=== PATIENT | male | born 1960 | race Two or more races ===

== ENCOUNTER 2020-07-15 14:30 | Inpatient (IN) | payer OTHER ==
[~2020-07-15] VITALS: Ht 160 cm; Wt 87.0 kg
[~2020-07-15 14:30] MED LIST: ATOR20TA50 PO; CARB-80 PO; CYCL-611 PO; FENO160T8 PO; FINA5TAB4 PO; FURO40TA4 PO; KEP500T PO; LISI2.5T47 PO; METO-159 PO; POTA10TA51 PO; PRAM0.252 PO; TAMS0.4C36 PO
[2020-07-15] MEDS ORDERED: NOREPINEPHRINE 8 MG/250ML KIT 250 ML IV ONE (15:12)
[2020-07-15 15:29] LABS: Basophils # (auto) 0 10 ^3/uL (0-0.2); Basophils % (auto) 0.3 % (0.0-2.0); Eosinophils # (auto) 0 10 ^3/uL (0-0.8); Eosinophils % (auto) 0.5 % (0.0-7.0); Hemoglobin 12.9 g/dL (13.5-17.5); Lymphocytes # (auto) 0.8 10 ^3/uL (0.4-5.4); Lymphocytes % (auto) 13.7 % (10.0-50.0); Mean Corpuscular Hemoglobin 29.5 pg (28.0-32.0); Mean Corpuscular Volume 89.4 fL (80.0-100.0); Monocytes # (auto) 0.3 10 ^3/uL (0-1.3); Monocytes % (auto) 5.5 % (0.0-12.0); Neutrophils # (auto) 4.9 10 ^3/uL (1.6-8.6); Nucleated Red Blood Cells % 0.1 %; Red Blood Cells 4.37 10^6/uL (4.5-5.90); Red Cell Distribution Width 14.5 % (11.8-14.3); White Blood Cell 6.1 10^3/uL (4.4-10.8)
[2020-07-15] MEDS ORDERED: NOREPINEPHRINE 8 MG/250ML KIT 250 ML IV SCH (15:30)
[2020-07-15] MEDS ORDERED: SODIUM CHLORIDE 0.9% 1,000 ML IV ONE (15:30)
[2020-07-15] MEDS ORDERED: AMIODARONE HCL (50 MG/ ML) 3 ML VIAL IV ONE (15:38)
[2020-07-15] MEDS ORDERED: AMIODARONE HCL 150 MG in D5W 5% 100 ML IV ONE (15:45)
[2020-07-15] MEDS ORDERED: SODIUM CHLORIDE 0.9% 500 ML IV ONE (15:45)
[2020-07-15 15:54] LABS: Calcium 8.1 mg/dL (8.5-10.1); Magnesium 2.2 mg/dL (1.6-2.6); Potassium 4.1 mmol/L (3.5-5.1)
[2020-07-15 15:58] LABS: Lactic Acid w/Reflex 2.4 mmol/L (0.4-2.0)
[2020-07-15 16:00] LABS: BUN/Creatinine Ratio 18.6; Bilirubin, Total 0.7 mg/dL (0.2-1.0); Total Protein 5.8 g/dL (6.4-8.2)
[2020-07-15] MEDS ORDERED: AMIODARONE 450mg/250ml AE 250 ML IV SCH (16:00)
[2020-07-15] MEDS: AMIODARONE 450mg/250ml AE 250 ML IV SCH (23:14)
[2020-07-16] MEDS ORDERED: CYCLOBENZAPRINE HCL 10 MG TAB PO PRN (02:30)
[2020-07-16] MEDS ORDERED: NITROGLYCERIN 0.4 MG SL TAB SL PRN (02:30)
[2020-07-16] MEDS ORDERED: MORPHINE SULFATE 4 MG/ML SYR/VIAL IV PRN (02:30)
[2020-07-16] MEDS ORDERED: SODIUM CHLORIDE 0.9% 1,000 ML IV SCH (02:30)
[2020-07-16] MEDS ORDERED: ACETAMINOPHEN 325 MG TAB PO PRN (02:30)
[2020-07-16] MEDS ORDERED: ONDANSETRON HCL 4 MG/2 ML VIAL IV PRN (02:30)
[2020-07-16] MEDS: ENOXAPARIN SOD 80 MG/0.8ML SYRINGE SC SCH ×3 (03:00→21:34)
[2020-07-16] MEDS ORDERED: PRAMIPEXOLE DIHYDROCHLORIDE MO 0.25 MG TAB PO SCH ×2 (06:00→18:00)
[2020-07-16] MEDS ORDERED: FUROSEMIDE 40 MG TAB PO SCH (06:00)
[2020-07-16] MEDS: CARBIDOPA W LEVODOPA 25/100mg TABLET PO SCH ×4 (06:03→21:34)
[2020-07-16 07:08] LABS: Calcium 7.9 mg/dL (8.5-10.1)
[2020-07-16 07:11] LABS: BUN/Creatinine Ratio 21.4
[2020-07-16 07:54] LABS: Basophils # (auto) 0 10 ^3/uL (0-0.2); Basophils % (auto) 0.4 % (0.0-2.0); Eosinophils # (auto) 0 10 ^3/uL (0-0.8); Eosinophils % (auto) 0.8 % (0.0-7.0); Hematocrit 37.2 % (41.0-53.0); Hemoglobin 12.6 g/dL (13.5-17.5); Lymphocytes # (auto) 0.9 10 ^3/uL (0.4-5.4); Lymphocytes % (auto) 17.7 % (10.0-50.0); Mean Corpuscular Hemoglobin 30.2 pg (28.0-32.0); Mean Corpuscular Volume 88.9 fL (80.0-100.0); Monocytes # (auto) 0.3 10 ^3/uL (0-1.3); Monocytes % (auto) 5.9 % (0.0-12.0); Neutrophils # (auto) 3.8 10 ^3/uL (1.6-8.6); Neutrophils % (auto) 75.2 % (37.0-80.0); Nucleated Red Blood Cells % 0.2 %; Red Blood Cells 4.18 10^6/uL (4.5-5.90); Red Cell Distribution Width 14.5 % (11.8-14.3); White Blood Cell 5.1 10^3/uL (4.4-10.8)
[2020-07-16] MEDS: METOPROLOL TARTRATE 50 MG TAB PO SCH ×2 (09:36→21:34)
[2020-07-16] MEDS: FINASTERIDE 5 MG TAB PO SCH (09:49)
[2020-07-16] MEDS: POTASSIUM CHL 10 Meq TABLET PO SCH (09:49)
[2020-07-16] MEDS: DOCUSATE SOD 100 MG CAP PO SCH (09:49)
[2020-07-16] MEDS: levETIRAcetam 500 MG TAB PO SCH ×2 (09:49→21:33)
[2020-07-16] MEDS: Fenofibrate 160MG TABLET PO SCH (09:49)
[2020-07-16] MEDS: ASPirin 81 mg TAB PO SCH (09:49)
[2020-07-16] MEDS: LISINOPRIL 5 MG TAB PO SCH (09:50)
[2020-07-16] MEDS ORDERED: ATORVASTATIN 20 MG TAB PO SCH ×2 (10:00→22:00)
[2020-07-16] MEDS ORDERED: CLOPIDOGREL BISULFATE 75 MG TAB PO SCH (10:00)
[2020-07-16 10:02] LABS: Urine Bacteria NONE SEEN /hpf (None Seen); Urine Blood 1+ /uL (Negative); Urine Hyaline Cast FEW /lpf (0 - 2); Urine Mucus FEW (None Seen); Urine Specific Gravity 1.012 (1.001-1.035); Urine WBC 1 /hpf (0 - 3)
[2020-07-16 12:20] VITALS: BP 160/86
[2020-07-16] MEDS: AMIODARONE 450mg/250ml AE 250 ML IV SCH (13:00)
[2020-07-16 16:00] VITALS: BP 147/88
[2020-07-16] MEDS ORDERED: TAMSULOSIN HYDROCHLORIDE 0.4 MG CAP PO SCH (18:00)
[2020-07-16 21:50] VITALS: BP 145/83
[2020-07-16 22:00] VITALS: BP 136/83
[2020-07-17] MEDS: CARBIDOPA W LEVODOPA 25/100mg TABLET PO SCH ×2 (05:05→12:21)
[2020-07-17 05:43] VITALS: BP 148/96
[2020-07-17 07:12] LABS: Calcium 7.8 mg/dL (8.5-10.1); Potassium 3.7 mmol/L (3.5-5.1)
[2020-07-17 07:20] LABS: BUN/Creatinine Ratio 23.5
[2020-07-17 09:33] VITALS: BP 131/77
[2020-07-17] MEDS: ASPirin 81 mg TAB PO SCH (09:49)
[2020-07-17] MEDS: levETIRAcetam 500 MG TAB PO SCH (09:49)
[2020-07-17] MEDS: DOCUSATE SOD 100 MG CAP PO SCH (09:49)
[2020-07-17] MEDS: Fenofibrate 160MG TABLET PO SCH (09:49)
[2020-07-17] MEDS: POTASSIUM CHL 10 Meq TABLET PO SCH (09:50)
[2020-07-17] MEDS: FINASTERIDE 5 MG TAB PO SCH (09:50)
[2020-07-17] MEDS: METOPROLOL TARTRATE 50 MG TAB PO SCH ×2 (09:53→12:22)
[2020-07-17] MEDS: LISINOPRIL 5 MG TAB PO SCH (09:55)
[2020-07-17] MEDS: ENOXAPARIN SOD 80 MG/0.8ML SYRINGE SC SCH (09:55)
== END 2020-07-17 14:32 | disposition home or self-care (01) | DRG 282 ==
LOC: ER 14:30 → EDBD 14:30 → TELE 14:31 → TELE-EAST 07-16 11:50
PROVIDERS: ADMIT Hospitalist; ATTEND Internal Medicine Geriatric Medicine
DX: I48.0 Paroxysmal atrial fibrillation (principal); I21.A1 Myocardial infarction type 2; I25.10 Atherosclerotic heart disease of native coronary artery without angina pectoris; G20 Parkinson's disease; Z20.822 Contact with and (suspected) exposure to COVID-19; E11.9 Type 2 diabetes mellitus without complications; E78.5 Hyperlipidemia, unspecified; I11.0 Hypertensive heart disease with heart failure; I50.9 Heart failure, unspecified; Z79.82 Long term (current) use of aspirin; Z99.3 Dependence on wheelchair
CPT/HCPCS: 36415; 71045; 80048; 80053; 80061; 81001; 83605; 83735; 84484; 85025; 87040; 87426; 93005; 93306; 96361; 96365; 96375; G0378; J7060

== ENCOUNTER 2021-06-09 09:46 | Inpatient (IN) | payer OTHER ==
[~2021-06-09] VITALS: Ht 170.2 cm; Wt 76.0 kg
[2021-06-09 12:38] LABS: Basophils # (auto) 0 10 ^3/uL (0-0.2); Basophils % (auto) 0.4 % (0.0-2.0); Eosinophils # (auto) 0 10 ^3/uL (0-0.8); Eosinophils % (auto) 0.5 % (0.0-7.0); Hematocrit 37.6 % (41.0-53.0); Hemoglobin 12.8 g/dL (13.5-17.5); Lymphocytes # (auto) 1.1 10 ^3/uL (0.4-5.4); Lymphocytes % (auto) 12.4 % (10.0-50.0); Mean Corpuscular Hemoglobin 29.3 pg (28.0-32.0); Mean Corpuscular Hgb Conc. 33.9 g/dL (32.0-36.0); Mean Corpuscular Volume 86.4 fL (80.0-100.0); Monocytes # (auto) 0.7 10 ^3/uL (0-1.3); Monocytes % (auto) 8.2 % (0.0-12.0); Neutrophils # (auto) 7.1 10 ^3/uL (1.6-8.6); Neutrophils % (auto) 78.5 % (37.0-80.0); Nucleated Red Blood Cells % 0.1 %; Red Blood Cells 4.35 10^6/uL (4.5-5.90); Red Cell Distribution Width 13.2 % (11.8-14.3); White Blood Cell 9.1 10^3/uL (4.4-10.8)
[2021-06-09 12:53] LABS: Calcium 8.1 mg/dL (8.5-10.1); Potassium 3.8 mmol/L (3.5-5.1); Uric Acid 5.7 mg/dL (3.5-7.2)
[2021-06-09] MEDS ORDERED: cefTRIAXone 1GM/50ML D5W 50 ML IV ONE (13:45)
[2021-06-09] MEDS ORDERED: CLINDAMYCIN 900MG IV 50 ML IV ONE (13:45)
[2021-06-09] MEDS ORDERED: NITROGLYCERIN 0.4 MG SL TAB SL PRN ×2 (17:30→18:30)
[2021-06-09] MEDS ORDERED: MORPHINE SULFATE INJECTION 2 MG/ML SYRG IV PRN ×2 (17:30→18:30)
[2021-06-09] MEDS ORDERED: VANCOMYCIN PER PHARMACY 0 MG IV SCH (18:15)
[2021-06-09] MEDS ORDERED: BUMETANIDE 2.5mg/10ml (0.25 mg/ml) INJ IV ONE (18:15)
[2021-06-09] MEDS ORDERED: LORazepam 0.5 MG TAB PO PRN (18:30)
[2021-06-09] MEDS ORDERED: ALUM & MAG HYDROX-SIMETH LIQ(MAALOX) 30 ML PO PRN (18:30)
[2021-06-09] MEDS ORDERED: HYDROcodone-ACET 5/325MG TAB PO PRN (18:30)
[2021-06-09] MEDS ORDERED: CALCIUM W/VIT D (600MG/400IU) TAB PO ONE (18:30)
[2021-06-09] MEDS ORDERED: ACETAMINOPHEN 325 MG TAB PO PRN (18:30)
[2021-06-09 19:54] LABS: Partial Thromboplastin Time 31.8 sec (23.6-33.0)
[2021-06-09 20:00] LABS: Uric Acid 6.1 mg/dL (3.5-7.2)
[2021-06-09 20:04] LABS: Cholesterol 99 mg/dL (< 200); Triglycerides 76 mg/dL (< 150)
[2021-06-09 20:06] LABS: HDL Cholesterol 49 mg/dL (40-59); LDL Cholesterol 35 mg/dL (< 100)
[2021-06-09] MEDS: levETIRAcetam 500 MG TAB PO SCH (20:32)
[2021-06-09] MEDS: CARBIDOPA W LEVODOPA 25/100mg TABLET PO SCH (20:32)
[2021-06-09] MEDS: PRAMIPEXOLE DIHYDROCHLORIDE MO 0.25 MG TAB PO SCH (20:32)
[2021-06-09] MEDS: VANCOMYCIN 1GM/250ML 250 ML IV SCH (20:33)
[2021-06-09] MEDS: SOTALOL HCL 80 MG TAB PO SCH (20:42)
[2021-06-09 21:20] LABS: Amphetamine Screen, Urine NEGATIVE (NEGATIVE); Barbiturate Scree,Urine NEGATIVE (NEGATIVE); Benzodiazephine Screen, Urine NEGATIVE (NEGATIVE); Cannabinoid Screen, Urine NEGATIVE (NEGATIVE); Opiate Scree,Urine NEGATIVE (NEGATIVE); Phencyclidine Screen, Urine NEGATIVE (NEGATIVE)
[2021-06-09] MEDS: NEOMYCIN-BACITRACIN-POLYM 15GM TOP OINT TOP SCH (21:32)
[2021-06-09 21:54] LABS: Urine Bacteria NONE SEEN /hpf (None Seen); Urine Blood TRACE /uL (Negative); Urine Hyaline Cast FEW /lpf (0 - 2); Urine Mucus FEW (None Seen); Urine Specific Gravity 1.014 (1.001-1.035); Urine WBC 1 /hpf (0 - 3)
[2021-06-09 22:19] LABS: Cocaine Screen, Urine NEGATIVE (NEGATIVE)
[2021-06-09 22:26] VITALS: BP 95/55
[2021-06-10] MEDS: BUMETANIDE 2.5mg/10ml (0.25 mg/ml) INJ IV SCH ×2 (05:27→18:00)
[2021-06-10 05:28] VITALS: BP 138/79
[2021-06-10] MEDS: CARBIDOPA W LEVODOPA 25/100mg TABLET PO SCH ×4 (05:28→21:08)
[2021-06-10] MEDS: PRAMIPEXOLE DIHYDROCHLORIDE MO 0.25 MG TAB PO SCH ×3 (05:28→21:08)
[2021-06-10] MEDS: NEOMYCIN-BACITRACIN-POLYM 15GM TOP OINT TOP SCH ×3 (05:28→21:09)
[2021-06-10 06:13] LABS: Basophils # (auto) 0 10 ^3/uL (0-0.2); Basophils % (auto) 0.2 % (0.0-2.0); Eosinophils # (auto) 0.1 10 ^3/uL (0-0.8); Eosinophils % (auto) 0.9 % (0.0-7.0); Hematocrit 34.5 % (41.0-53.0); Hemoglobin 11.7 g/dL (13.5-17.5); Lymphocytes # (auto) 0.7 10 ^3/uL (0.4-5.4); Lymphocytes % (auto) 12.7 % (10.0-50.0); Mean Corpuscular Hemoglobin 28.7 pg (28.0-32.0); Mean Corpuscular Hgb Conc. 33.9 g/dL (32.0-36.0); Mean Corpuscular Volume 84.8 fL (80.0-100.0); Monocytes # (auto) 0.4 10 ^3/uL (0-1.3); Monocytes % (auto) 7.1 % (0.0-12.0); Neutrophils # (auto) 4.5 10 ^3/uL (1.6-8.6); Neutrophils % (auto) 79.1 % (37.0-80.0); Nucleated Red Blood Cells % 0.1 %; Red Blood Cells 4.07 10^6/uL (4.5-5.90); Red Cell Distribution Width 13.3 % (11.8-14.3); White Blood Cell 5.7 10^3/uL (4.4-10.8)
[2021-06-10 06:31] LABS: INR 0.99 (0.9-1.15); Partial Thromboplastin Time 31.3 sec (23.6-33.0)
[2021-06-10 06:41] LABS: Albumin 2.7 g/dL (3.4-5.0); Bilirubin, Total 0.5 mg/dL (0.2-1.0); Calcium 8.3 mg/dL (8.5-10.1); Magnesium 2.3 mg/dL (1.6-2.6); Phosphorus 3.7 mg/dL (2.5-4.90); Total Protein 6.3 g/dL (6.4-8.2)
[2021-06-10] MEDS: CALCIUM W/VIT D (600MG/400IU) TAB PO SCH ×2 (08:17→17:59)
[2021-06-10] MEDS: VANCOMYCIN 1GM/250ML 250 ML IV SCH ×2 (08:18→19:58)
[2021-06-10 09:06] VITALS: BP 112/63
[2021-06-10] MEDS: cefTRIAXone 1GM/50ML D5W 50 ML IV SCH (10:03)
[2021-06-10] MEDS: ENOXAPARIN SOD 40 MG/0.4 ML SYRINGE SC SCH (10:03)
[2021-06-10] MEDS: ASPirin 81 mg TAB PO SCH (10:04)
[2021-06-10] MEDS: ATORVASTATIN 20 MG TAB PO SCH (10:04)
[2021-06-10] MEDS: BENAZEPRIL HCL 10 MG TAB PO SCH (10:04)
[2021-06-10] MEDS: SOTALOL HCL 80 MG TAB PO SCH ×2 (10:04→21:46)
[2021-06-10] MEDS: levETIRAcetam 500 MG TAB PO SCH ×2 (10:05→21:07)
[2021-06-10] MEDS: FINASTERIDE 5 MG TAB PO SCH (10:05)
[2021-06-10 12:15] VITALS: BP 131/75
[2021-06-10] MEDS: MORPHINE SULFATE INJECTION 2 MG/ML SYRG IV PRN ×2 (12:18→19:59)
[2021-06-10] MEDS ORDERED: COLCHICINE 0.6 MG CAP PO ONE (14:15)
[2021-06-10] MEDS ORDERED: POTASSIUM CHL 20 Meq TABLET PO ONE (14:30)
[2021-06-10 16:30] VITALS: BP 122/77
[2021-06-10] MEDS: TAMSULOSIN HYDROCHLORIDE 0.4 MG CAP PO SCH (17:59)
[2021-06-10 22:00] VITALS: BP 113/68
[2021-06-11 05:00] VITALS: BP 123/75
[2021-06-11] MEDS: CARBIDOPA W LEVODOPA 25/100mg TABLET PO SCH ×4 (05:30→21:59)
[2021-06-11] MEDS: PRAMIPEXOLE DIHYDROCHLORIDE MO 0.25 MG TAB PO SCH ×3 (05:30→21:58)
[2021-06-11] MEDS: BUMETANIDE 2.5mg/10ml (0.25 mg/ml) INJ IV SCH ×2 (05:30→18:15)
[2021-06-11] MEDS: NEOMYCIN-BACITRACIN-POLYM 15GM TOP OINT TOP SCH ×3 (05:31→21:59)
[2021-06-11] MEDS: CALCIUM W/VIT D (600MG/400IU) TAB PO SCH ×2 (08:15→18:15)
[2021-06-11] MEDS: VANCOMYCIN 1GM/250ML 250 ML IV SCH ×2 (08:15→20:19)
[2021-06-11 08:27] LABS: Basophils # (auto) 0 10 ^3/uL (0-0.2); Basophils % (auto) 0.2 % (0.0-2.0); Eosinophils # (auto) 0.1 10 ^3/uL (0-0.8); Eosinophils % (auto) 1.2 % (0.0-7.0); Hematocrit 36.7 % (41.0-53.0); Hemoglobin 12.3 g/dL (13.5-17.5); Lymphocytes # (auto) 0.8 10 ^3/uL (0.4-5.4); Lymphocytes % (auto) 15.8 % (10.0-50.0); Mean Corpuscular Hemoglobin 28.8 pg (28.0-32.0); Mean Corpuscular Hgb Conc. 33.5 g/dL (32.0-36.0); Mean Corpuscular Volume 85.8 fL (80.0-100.0); Monocytes # (auto) 0.4 10 ^3/uL (0-1.3); Monocytes % (auto) 7.5 % (0.0-12.0); Neutrophils % (auto) 75.3 % (37.0-80.0); Red Blood Cells 4.28 10^6/uL (4.5-5.90); Red Cell Distribution Width 13.3 % (11.8-14.3); White Blood Cell 5.3 10^3/uL (4.4-10.8)
[2021-06-11] MEDS: MORPHINE SULFATE INJECTION 2 MG/ML SYRG IV PRN ×2 (08:37→20:20)
[2021-06-11 09:00] VITALS: BP 109/48
[2021-06-11 09:07] LABS: BUN/Creatinine Ratio 21.8; Calcium 7.9 mg/dL (8.5-10.1); Potassium 3.4 mmol/L (3.5-5.1)
[2021-06-11] MEDS: cefTRIAXone 1GM/50ML D5W 50 ML IV SCH (09:39)
[2021-06-11] MEDS: levETIRAcetam 500 MG TAB PO SCH ×2 (09:40→21:58)
[2021-06-11] MEDS: ATORVASTATIN 20 MG TAB PO SCH (09:41)
[2021-06-11] MEDS: COLCHICINE 0.6 MG CAP PO SCH ×2 (09:41→21:58)
[2021-06-11] MEDS: FINASTERIDE 5 MG TAB PO SCH (09:41)
[2021-06-11] MEDS: BENAZEPRIL HCL 10 MG TAB PO SCH (09:41)
[2021-06-11] MEDS: ASPirin 81 mg TAB PO SCH (09:41)
[2021-06-11] MEDS: SOTALOL HCL 80 MG TAB PO SCH ×2 (09:42→21:58)
[2021-06-11] MEDS: ENOXAPARIN SOD 40 MG/0.4 ML SYRINGE SC SCH (09:43)
[2021-06-11] MEDS ORDERED: POTASSIUM CHL 20 Meq TABLET PO ONE (10:45)
[2021-06-11 13:00] VITALS: BP 103/55
[2021-06-11] MEDS: DOCUSATE SOD 100 MG CAP PO PRN (13:42)
[2021-06-11 17:00] VITALS: BP_SYST 131; BP_SYST 163; BP_DIAS 60; BP_DIAS 74
[2021-06-11] MEDS: TAMSULOSIN HYDROCHLORIDE 0.4 MG CAP PO SCH (18:15)
[2021-06-11 22:00] VITALS: BP 131/85
[2021-06-12 05:00] VITALS: BP 128/82
[2021-06-12] MEDS: BUMETANIDE 2.5mg/10ml (0.25 mg/ml) INJ IV SCH ×2 (06:04→17:58)
[2021-06-12] MEDS: CARBIDOPA W LEVODOPA 25/100mg TABLET PO SCH ×4 (06:04→22:00)
[2021-06-12] MEDS: PRAMIPEXOLE DIHYDROCHLORIDE MO 0.25 MG TAB PO SCH ×3 (06:04→22:00)
[2021-06-12] MEDS: NEOMYCIN-BACITRACIN-POLYM 15GM TOP OINT TOP SCH ×3 (06:05→22:00)
[2021-06-12] MEDS: DOCUSATE SOD 100 MG CAP PO PRN (06:05)
[2021-06-12 06:06] LABS: Potassium 3.4 mmol/L (3.5-5.1)
[2021-06-12 06:10] LABS: BUN/Creatinine Ratio 23.4; Calcium 8.1 mg/dL (8.5-10.1)
[2021-06-12] MEDS: VANCOMYCIN 1GM/250ML 250 ML IV SCH ×2 (08:05→20:35)
[2021-06-12] MEDS: CALCIUM W/VIT D (600MG/400IU) TAB PO SCH ×2 (08:05→17:57)
[2021-06-12 09:00] VITALS: BP 116/68
[2021-06-12] MEDS ORDERED: POTASSIUM CHL 20 Meq TABLET PO ONE (09:30)
[2021-06-12] MEDS: ENOXAPARIN SOD 40 MG/0.4 ML SYRINGE SC SCH (09:37)
[2021-06-12] MEDS: levETIRAcetam 500 MG TAB PO SCH ×2 (09:37→22:00)
[2021-06-12] MEDS: cefTRIAXone 1GM/50ML D5W 50 ML IV SCH (09:37)
[2021-06-12] MEDS: SOTALOL HCL 80 MG TAB PO SCH ×2 (09:38→22:00)
[2021-06-12] MEDS: ATORVASTATIN 20 MG TAB PO SCH (09:38)
[2021-06-12] MEDS: COLCHICINE 0.6 MG CAP PO SCH ×2 (09:38→22:00)
[2021-06-12] MEDS: ASPirin 81 mg TAB PO SCH (09:38)
[2021-06-12] MEDS: FINASTERIDE 5 MG TAB PO SCH (09:39)
[2021-06-12] MEDS: BENAZEPRIL HCL 10 MG TAB PO SCH (09:39)
[2021-06-12] MEDS ORDERED: LACTULOSE 20Gm/30ML SOLN PO ONE (11:00)
[2021-06-12 13:00] VITALS: BP 101/67
[2021-06-12 17:00] VITALS: BP 116/80
[2021-06-12] MEDS: TAMSULOSIN HYDROCHLORIDE 0.4 MG CAP PO SCH (17:57)
[2021-06-12] MEDS: ONDANSETRON HCL 4 MG/2 ML VIAL IV PRN (18:02)
[2021-06-12 22:00] VITALS: BP 109/58
[2021-06-13] VITALS (12 sets, daily range): BP systolic 78–107; BP diastolic 36–68
[2021-06-13] MEDS: PRAMIPEXOLE DIHYDROCHLORIDE MO 0.25 MG TAB PO SCH ×3 (06:19→22:36)
[2021-06-13] MEDS: BUMETANIDE 2.5mg/10ml (0.25 mg/ml) INJ IV SCH (06:19)
[2021-06-13] MEDS: CARBIDOPA W LEVODOPA 25/100mg TABLET PO SCH ×4 (06:19→22:35)
[2021-06-13] MEDS: NEOMYCIN-BACITRACIN-POLYM 15GM TOP OINT TOP SCH ×3 (06:20→22:37)
[2021-06-13] MEDS: DOCUSATE SOD 100 MG CAP PO PRN (09:06)
[2021-06-13] MEDS: VANCOMYCIN 1GM/250ML 250 ML IV SCH ×2 (09:06→20:04)
[2021-06-13] MEDS: COLCHICINE 0.6 MG CAP PO SCH ×2 (09:06→22:35)
[2021-06-13] MEDS: ASPirin 81 mg TAB PO SCH (09:07)
[2021-06-13] MEDS: ATORVASTATIN 20 MG TAB PO SCH (09:07)
[2021-06-13] MEDS: CALCIUM W/VIT D (600MG/400IU) TAB PO SCH ×2 (09:07→17:10)
[2021-06-13] MEDS: BENAZEPRIL HCL 10 MG TAB PO SCH (09:08)
[2021-06-13] MEDS: FINASTERIDE 5 MG TAB PO SCH (09:09)
[2021-06-13] MEDS: SOTALOL HCL 80 MG TAB PO SCH (09:09)
[2021-06-13] MEDS: ENOXAPARIN SOD 40 MG/0.4 ML SYRINGE SC SCH (09:09)
[2021-06-13] MEDS: cefTRIAXone 1GM/50ML D5W 50 ML IV SCH (09:15)
[2021-06-13] MEDS: levETIRAcetam 500 MG TAB PO SCH ×2 (09:16→22:36)
[2021-06-13] MEDS: LACTULOSE 20Gm/30ML SOLN PO SCH (12:04)
[2021-06-13] MEDS ORDERED: SODIUM CHLORIDE 0.9% 500 ML IV ONE (15:15)
[2021-06-13] MEDS: TAMSULOSIN HYDROCHLORIDE 0.4 MG CAP PO SCH (17:10)
[2021-06-13] MEDS: ONDANSETRON HCL 4 MG/2 ML VIAL IV PRN (17:28)
[2021-06-14 05:00] VITALS: BP 113/75
[2021-06-14] MEDS: CARBIDOPA W LEVODOPA 25/100mg TABLET PO SCH ×4 (05:57→21:40)
[2021-06-14] MEDS: PRAMIPEXOLE DIHYDROCHLORIDE MO 0.25 MG TAB PO SCH ×3 (05:57→21:41)
[2021-06-14] MEDS: NEOMYCIN-BACITRACIN-POLYM 15GM TOP OINT TOP SCH ×3 (05:59→21:41)
[2021-06-14 06:15] LABS: Calcium 8.4 mg/dL (8.5-10.1); Potassium 3.9 mmol/L (3.5-5.1)
[2021-06-14 06:18] LABS: BUN/Creatinine Ratio 20.4
[2021-06-14] MEDS: VANCOMYCIN 1GM/250ML 250 ML IV SCH (08:00)
[2021-06-14] MEDS: CALCIUM W/VIT D (600MG/400IU) TAB PO SCH ×2 (08:53→18:23)
[2021-06-14] MEDS: ATORVASTATIN 20 MG TAB PO SCH (08:54)
[2021-06-14] MEDS: COLCHICINE 0.6 MG CAP PO SCH ×2 (08:54→21:40)
[2021-06-14] MEDS: ENOXAPARIN SOD 40 MG/0.4 ML SYRINGE SC SCH (08:54)
[2021-06-14] MEDS: FINASTERIDE 5 MG TAB PO SCH (08:54)
[2021-06-14] MEDS: levETIRAcetam 500 MG TAB PO SCH ×2 (08:54→21:41)
[2021-06-14] MEDS: ASPirin 81 mg TAB PO SCH (08:54)
[2021-06-14] MEDS: cefTRIAXone 1GM/50ML D5W 50 ML IV SCH (08:55)
[2021-06-14 09:01] VITALS: BP 122/89
[2021-06-14] MEDS: LACTULOSE 20Gm/30ML SOLN PO SCH (11:30)
[2021-06-14] MEDS ORDERED: SODIUM CHLORIDE 0.9% 250 ML IV ONE (11:45)
[2021-06-14 13:30] VITALS: BP 115/76
[2021-06-14] MEDS: SODIUM CHLORIDE 0.9% 1,000 ML IV SCH (14:38)
[2021-06-14 16:30] VITALS: BP 116/66
[2021-06-14] MEDS: TAMSULOSIN HYDROCHLORIDE 0.4 MG CAP PO SCH (18:23)
[2021-06-14 22:00] VITALS: BP 115/62
[2021-06-15] MEDS: SODIUM CHLORIDE 0.9% 1,000 ML IV SCH (04:12)
[2021-06-15 05:00] VITALS: BP 129/80
[2021-06-15] MEDS: PRAMIPEXOLE DIHYDROCHLORIDE MO 0.25 MG TAB PO SCH ×2 (05:53→12:52)
[2021-06-15] MEDS: CARBIDOPA W LEVODOPA 25/100mg TABLET PO SCH ×2 (05:53→12:52)
[2021-06-15] MEDS: NEOMYCIN-BACITRACIN-POLYM 15GM TOP OINT TOP SCH ×2 (05:53→12:52)
[2021-06-15 06:27] LABS: Potassium 3.6 mmol/L (3.5-5.1)
[2021-06-15 06:33] LABS: BUN/Creatinine Ratio 23.5; Calcium 8.5 mg/dL (8.5-10.1)
[2021-06-15 09:20] VITALS: BP 127/76
[2021-06-15] MEDS: COLCHICINE 0.6 MG CAP PO SCH (10:11)
[2021-06-15] MEDS: ATORVASTATIN 20 MG TAB PO SCH (10:11)
[2021-06-15] MEDS: ASPirin 81 mg TAB PO SCH (10:11)
[2021-06-15] MEDS: FINASTERIDE 5 MG TAB PO SCH (10:11)
[2021-06-15] MEDS: CALCIUM W/VIT D (600MG/400IU) TAB PO SCH (10:11)
[2021-06-15] MEDS: ENOXAPARIN SOD 40 MG/0.4 ML SYRINGE SC SCH (10:12)
[2021-06-15] MEDS: levETIRAcetam 500 MG TAB PO SCH (10:12)
[2021-06-15] MEDS ORDERED: COLC0.6T56 PO (11:00)
[2021-06-15] MEDS ORDERED: ALLO100T PO (11:00)
[2021-06-15] MEDS: LACTULOSE 20Gm/30ML SOLN PO SCH (11:52)
[2021-06-15 13:19] VITALS: BP 126/79
== END 2021-06-15 15:25 | disposition home or self-care (01) | DRG 554 ==
LOC: ER 09:46 → OVERFLOW 17:21 → WEST WING 18:18
PROVIDERS: ADMIT Hospitalist; ATTEND Internal Medicine Geriatric Medicine
DX: M10.071 Idiopathic gout, right ankle and foot (principal); L03.115 Cellulitis of right lower limb; N17.9 Acute kidney failure, unspecified; I48.20 Chronic atrial fibrillation, unspecified; I50.42 Chronic combined systolic (congestive) and diastolic (congestive) heart failure; E44.0 Moderate protein-calorie malnutrition; G40.909 Epilepsy, unspecified, not intractable, without status epilepticus; G20 Parkinson's disease; E78.5 Hyperlipidemia, unspecified; D64.9 Anemia, unspecified; I11.0 Hypertensive heart disease with heart failure; M19.90 Unspecified osteoarthritis, unspecified site; A46 Erysipelas; N40.0 Benign prostatic hyperplasia without lower urinary tract symptoms; Z20.822 Contact with and (suspected) exposure to COVID-19; E11.9 Type 2 diabetes mellitus without complications; Z79.899 Other long term (current) drug therapy
CPT/HCPCS: 36415; 73610; 73630; 80048; 80053; 80061; 80202; 80307; 81001; 83036; 83605; 83735; 83880; 84100; 84443; 84484; 84550; 85025; 85379; 85610; 85652; 85730; 86038; 86141; 87040; 87086; 87426; 93970; 96365; 96368; 96375; 97110; 97116; 97163; 97530; G0378; J0696; J2405; J3490

== ENCOUNTER 2022-10-13 08:40 | Emergency (ER) | payer OTHER ==
[~2022-10-13] VITALS: Ht 175.3 cm; Wt 86.0 kg
[~2022-10-13 08:40] MED LIST changes: +ALLO100T PO; +COLC0.6T56 PO
[2022-10-13 09:20] LABS: Basophils # (auto) 0 10 ^3/uL (0-0.2); Basophils % (auto) 0.3 % (0.0-2.0); Eosinophils # (auto) 0.1 10 ^3/uL (0-0.8); Eosinophils % (auto) 1.9 % (0.0-7.0); Hemoglobin 15.5 g/dL (13.5-17.5); Lymphocytes # (auto) 1.2 10 ^3/uL (0.4-5.4); Lymphocytes % (auto) 19.9 % (10.0-50.0); Mean Corpuscular Hemoglobin 29.8 pg (28.0-32.0); Mean Corpuscular Hgb Conc. 33.6 g/dL (32.0-36.0); Mean Corpuscular Volume 88.7 fL (80.0-100.0); Monocytes # (auto) 0.3 10 ^3/uL (0-1.3); Monocytes % (auto) 4.7 % (0.0-12.0); Neutrophils # (auto) 4.5 10 ^3/uL (1.6-8.6); Neutrophils % (auto) 73.2 % (37.0-80.0); Nucleated Red Blood Cells % 0.5 %; Red Blood Cells 5.19 10^6/uL (4.5-5.90); Red Cell Distribution Width 14.3 % (11.8-14.3); White Blood Cell 6.2 10^3/uL (4.4-10.8)
[2022-10-13 10:04] LABS: Albumin 3.4 g/dL (3.4-5.0); Calcium 8.2 mg/dL (8.5-10.1); Potassium 4.1 mmol/L (3.5-5.1)
[2022-10-13 10:08] LABS: BUN/Creatinine Ratio 17.9 (10.0-20.0); Bilirubin, Total 0.8 mg/dL (0.2-1.0); Total Protein 6.1 g/dL (6.4-8.2)
[2022-10-13 11:32] VITALS: BP 162/100
[2022-10-13] MEDS ORDERED: cloNIDine HCL 0.1 MG TAB PO ONE (11:45)
== END 2022-10-13 10:51 | disposition home or self-care (01) ==
LOC: ER 08:40 → EDBD 08:40 → ER 10:51
DX: I16.0 Hypertensive urgency (principal); I11.0 Hypertensive heart disease with heart failure; I50.9 Heart failure, unspecified; E11.9 Type 2 diabetes mellitus without complications; E78.5 Hyperlipidemia, unspecified; R51.9 Headache, unspecified
CPT/HCPCS: 36415; 70450; 71045; 80053; 83880; 84484; 85025; 93005

== ENCOUNTER 2022-12-14 11:30 | Inpatient (IN) | payer OTHER ==
[~2022-12-14] VITALS: Ht 167.6 cm; Wt 68.0 kg
[~2022-12-14 11:30] MED LIST changes: +CARB-118 PO; -CARB-80 PO; +FENO160T PO; -FENO160T8 PO
[2022-12-14 12:09] LABS: Basophils # (auto) 0 10 ^3/uL (0-0.2); Basophils % (auto) 0.4 % (0.0-2.0); Eosinophils # (auto) 0.1 10 ^3/uL (0-0.8); Eosinophils % (auto) 2.3 % (0.0-7.0); Hematocrit 39.8 % (41.0-53.0); Hemoglobin 13.2 g/dL (13.5-17.5); Mean Corpuscular Hemoglobin 29.8 pg (28.0-32.0); Mean Corpuscular Hgb Conc. 33.2 g/dL (32.0-36.0); Mean Corpuscular Volume 89.7 fL (80.0-100.0); Monocytes # (auto) 0.3 10 ^3/uL (0-1.3); Monocytes % (auto) 6.1 % (0.0-12.0); Neutrophils # (auto) 3.4 10 ^3/uL (1.6-8.6); Neutrophils % (auto) 70.2 % (37.0-80.0); Nucleated Red Blood Cells % 0.2 %; Red Blood Cells 4.44 10^6/uL (4.5-5.90); Red Cell Distribution Width 13.8 % (11.8-14.3); White Blood Cell 4.9 10^3/uL (4.4-10.8)
[2022-12-14] MEDS ORDERED: SODIUM CHLORIDE 0.9% 1,000 ML IV ONE ×2 (12:15)
[2022-12-14 12:18] LABS: INR 1.04 (0.9-1.15); Partial Thromboplastin Time 29.6 SEC (24.5-34.5)
[2022-12-14 12:34] LABS: Albumin 2.9 g/dL (3.4-5.0); BUN/Creatinine Ratio 22.4 (10.0-20.0); Calcium 7.7 mg/dL (8.5-10.1); Magnesium 2.1 mg/dL (1.6-2.6)
[2022-12-14 12:51] LABS: Bilirubin, Total 0.5 mg/dL (0.2-1.0); Total Protein 5.5 g/dL (6.4-8.2)
[2022-12-14] MEDS ORDERED: AMLO1TAB22 PO (17:14)
[2022-12-14] MEDS ORDERED: NITROGLYCERIN 0.4 MG SL TAB SL PRN (17:15)
[2022-12-14] MEDS ORDERED: DOCUSATE SOD 100 MG CAP PO PRN (17:15)
[2022-12-14] MEDS ORDERED: SODIUM CHLORIDE 0.9% 1,000 ML IV SCH (17:15)
[2022-12-14] MEDS ORDERED: HYDROcodone-ACET 5/325MG TAB PO PRN (17:15)
[2022-12-14] MEDS ORDERED: ACETAMINOPHEN 325 MG TAB PO PRN (17:15)
[2022-12-14] MEDS ORDERED: MORPHINE SULFATE INJ 2 MG/ml SYRG IV PRN (17:15)
[2022-12-14] MEDS ORDERED: CALCIUM GLUC 1,000mg/50ml-NS 50 ML IV ONE (20:15)
[2022-12-14] MEDS ORDERED: SOD CHL 0.45% 1,000 ML IV SCH (21:00)
[2022-12-14] MEDS: CARBIDOPA W LEVODOPA 25/100mg TABLET PO SCH (22:00)
[2022-12-14] MEDS ORDERED: TAMSULOSIN HYDROCHLORIDE 0.4 MG CAP PO SCH (22:00)
[2022-12-14] MEDS: PRAMIPEXOLE DIHYDROCHLORIDE MO 0.25 MG TAB PO SCH (22:00)
[2022-12-14] MEDS ORDERED: ATORVASTATIN 20 MG TAB PO SCH (22:00)
[2022-12-14] MEDS: levETIRAcetam 500 MG TAB PO SCH (22:00)
[2022-12-14 22:19] VITALS: BP 168/100
[2022-12-14 23:07] LABS: Urine Bacteria NONE SEEN /hpf (None Seen); Urine Blood Negative /uL (Negative); Urine Hyaline Cast FEW /lpf (0 - 2); Urine Mucus FEW (None Seen); Urine Specific Gravity 1.021 (1.001-1.035); Urine WBC 277 /hpf (0 - 3)
[2022-12-14] MEDS: cloNIDine HCL 0.1 MG TAB PO PRN (23:23)
[2022-12-15 05:00] VITALS: BP 164/94
[2022-12-15] MEDS: cloNIDine HCL 0.1 MG TAB PO PRN (05:45)
[2022-12-15] MEDS: CARBIDOPA W LEVODOPA 25/100mg TABLET PO SCH ×2 (05:47→12:33)
[2022-12-15] MEDS: PRAMIPEXOLE DIHYDROCHLORIDE MO 0.25 MG TAB PO SCH ×2 (06:00→09:08)
[2022-12-15 06:14] LABS: Potassium 3.6 mmol/L (3.5-5.1)
[2022-12-15 06:23] LABS: Basophils # (auto) 0 10 ^3/uL (0-0.2); Basophils % (auto) 0.4 % (0.0-2.0); Eosinophils # (auto) 0.1 10 ^3/uL (0-0.8); Eosinophils % (auto) 2.6 % (0.0-7.0); Hematocrit 39.1 % (41.0-53.0); Hemoglobin 13.2 g/dL (13.5-17.5); Lymphocytes # (auto) 1.2 10 ^3/uL (0.4-5.4); Lymphocytes % (auto) 23.8 % (10.0-50.0); Mean Corpuscular Hemoglobin 30.4 pg (28.0-32.0); Mean Corpuscular Hgb Conc. 33.9 g/dL (32.0-36.0); Mean Corpuscular Volume 89.6 fL (80.0-100.0); Monocytes # (auto) 0.3 10 ^3/uL (0-1.3); Monocytes % (auto) 6.1 % (0.0-12.0); Neutrophils # (auto) 3.5 10 ^3/uL (1.6-8.6); Neutrophils % (auto) 67.1 % (37.0-80.0); Nucleated Red Blood Cells % 0.5 %; Red Blood Cells 4.36 10^6/uL (4.5-5.90); Red Cell Distribution Width 13.8 % (11.8-14.3); White Blood Cell 5.2 10^3/uL (4.4-10.8)
[2022-12-15 06:24] LABS: Albumin 2.9 g/dL (3.4-5.0); BUN/Creatinine Ratio 21.4 (10.0-20.0); Calcium 7.7 mg/dL (8.5-10.1)
[2022-12-15 06:37] LABS: Bilirubin, Total 0.6 mg/dL (0.2-1.0); Total Protein 5.8 g/dL (6.4-8.2)
[2022-12-15] MEDS ORDERED: METO-159 PO (08:56)
[2022-12-15 09:00] VITALS: BP 143/80
[2022-12-15] MEDS ORDERED: LOS25T PO (09:11)
[2022-12-15] MEDS ORDERED: CARB-112 PO (09:11)
[2022-12-15] MEDS ORDERED: SOTA80TA62 PO (09:11)
[2022-12-15] MEDS ORDERED: TRIO1TP TOP (09:11)
[2022-12-15] MEDS ORDERED: PRAM1TAB33 PO (09:11)
[2022-12-15] MEDS ORDERED: ALLOPURINOL 100 MG TAB PO SCH (10:00)
[2022-12-15] MEDS ORDERED: amLODIPine BESYLATE 5 MG TAB PO SCH (10:00)
[2022-12-15] MEDS ORDERED: ASPirin-EC 81 mg tab PO SCH (10:00)
[2022-12-15] MEDS ORDERED: METOPROLOL TARTRATE 50 MG TAB PO SCH (10:00)
[2022-12-15] MEDS ORDERED: LISINOPRIL 5 MG TAB PO SCH (10:00)
[2022-12-15] MEDS: levETIRAcetam 500 MG TAB PO SCH (10:30)
[2022-12-15 13:00] VITALS: BP 136/85
[2022-12-15] MEDS ORDERED: cefTRIAXone 1GM/50ML D5W 50 ML IV ONE (13:45)
[2022-12-15 14:27] VITALS: BP 143/80
[2022-12-15 14:36] LABS: Cholesterol 119 mg/dL (< 200); HDL Cholesterol 48 mg/dL (40-59); LDL Cholesterol 61 mg/dL (< 100); Triglycerides 111 mg/dL (< 150)
== END 2022-12-15 16:05 | disposition home or self-care (01) | DRG 315 ==
LOC: EDBD 11:30 → ER 11:30 → TELE 17:14 → TELE-WESTW 22:09
PROVIDERS: ADMIT Nurse Practitioner Family; ATTEND Internal Medicine Geriatric Medicine
DX: I95.9 Hypotension, unspecified (principal); E44.0 Moderate protein-calorie malnutrition; E78.5 Hyperlipidemia, unspecified; G20 Parkinson's disease; Z68.24 Body mass index [BMI] 24.0-24.9, adult; E11.9 Type 2 diabetes mellitus without complications; I11.0 Hypertensive heart disease with heart failure; I48.0 Paroxysmal atrial fibrillation; I50.9 Heart failure, unspecified; G40.909 Epilepsy, unspecified, not intractable, without status epilepticus; N40.0 Benign prostatic hyperplasia without lower urinary tract symptoms; Z79.899 Other long term (current) drug therapy; Z83.3 Family history of diabetes mellitus; I25.2 Old myocardial infarction
CPT/HCPCS: 36415; 70450; 71045; 80053; 80061; 81001; 82962; 83735; 83880; 84443; 84484; 85025; 85610; 85730; 93005; 93306; G0378

== ENCOUNTER 2023-09-25 13:47 | Inpatient (IN) | payer OTHER ==
[~2023-09-25] VITALS: Ht 175.3 cm; Wt 83.9 kg
[~2023-09-25 13:47] MED LIST changes: +AMLO1TAB22 PO; +CIPR-273 PO; -COLC0.6T56 PO; -CYCL-611 PO; -FENO160T PO; -FINA5TAB4 PO; -FURO40TA4 PO; -LISI2.5T47 PO; +LOS25T PO; -METO-159 PO; +MULT-1018 PO; +PERCOT PO; -POTA10TA51 PO; -PRAM0.252 PO; +PRAM1.5T25 PO; +SOTA80TA62 PO
[2023-09-25] MEDS: SODIUM CHLORIDE 0.9% 1,000 ML IVB ONE (14:15)
[2023-09-25 14:50] LABS: Basophils # (auto) 0 10 ^3/uL (0-0.2); Basophils % (auto) 0.2 % (0.0-2.0); Eosinophils # (auto) 0.1 10 ^3/uL (0-0.8); Eosinophils % (auto) 2.2 % (0.0-7.0); Hematocrit 40.6 % (41.0-53.0); Hemoglobin 13.5 g/dL (13.5-17.5); Lymphocytes # (auto) 1.4 10 ^3/uL (0.4-5.4); Lymphocytes % (auto) 23.3 % (10.0-50.0); Mean Corpuscular Hemoglobin 29.9 pg (28.0-32.0); Mean Corpuscular Hgb Conc. 33.3 g/dL (32.0-36.0); Mean Corpuscular Volume 89.8 fL (80.0-100.0); Monocytes # (auto) 0.5 10 ^3/uL (0-1.3); Monocytes % (auto) 8.5 % (0.0-12.0); Neutrophils % (auto) 65.8 % (37.0-80.0); Nucleated Red Blood Cells % 0.1 %; Red Blood Cells 4.52 10^6/uL (4.5-5.90); Red Cell Distribution Width 14.3 % (11.8-14.3); White Blood Cell 6.1 10^3/uL (4.4-10.8)
[2023-09-25 15:14] LABS: Alkaline Phosphatase 72 U/L (46-116); Anion Gap 8 (5-15); Aspartate Aminotransferase 52 U/L (13-40); BUN/Creatinine Ratio 18.9 (10.0-20.0); Blood Alcohol 6.5 mg/dL (<10); Blood Urea Nitrogen 18 mg/dL (9-23); Calcium 8.4 mg/dL (8.5-10.1); Carbon Dioxide 27 mmol/L (20-30); Chloride 111 mmol/L (98-107); Glucose 96 mg/dL (74-106); Potassium 3.4 mmol/L (3.5-5.1); Sodium 146 mmol/L (136-145)
[2023-09-25 15:15] LABS: Albumin 3.7 g/dL (3.2-4.8); Bilirubin, Total 0.6 mg/dL (0.2-1.0); Total Protein 5.6 g/dL (5.7-8.2)
[2023-09-25 15:29] LABS: Alanine Aminotransferase < 9 U/L (7-40)
[2023-09-25 15:54] LABS: Magnesium 1.9 mg/dL (1.6-2.6)
[2023-09-25 16:19] LABS: Urine Bacteria FEW /hpf (None Seen); Urine Blood 2+ /uL (Negative); Urine Clarity Clear (Clear); Urine Color Colorless (Yellow); Urine Hyaline Cast FEW /lpf (0 - 2); Urine Mucus FEW (None Seen); Urine Protein, UAD Negative (Negative); Urine Specific Gravity 1.009 (1.001-1.035); Urine Urobilinogen Normal (Negative); Urine WBC 1 /hpf (0 - 3); Urine pH 5.5 (5.0-9.0)
[2023-09-25 16:38] LABS: Amphetamine Screen, Urine Neg (NEGATIVE); Barbiturate Scree,Urine Neg (NEGATIVE); Benzodiazephine Screen, Urine Neg (NEGATIVE); Cannabinoid Screen, Urine Neg (NEGATIVE); Cocaine Screen, Urine Neg (NEGATIVE); Opiate Scree,Urine Neg (NEGATIVE); Phencyclidine Screen, Urine Neg (NEGATIVE)
[2023-09-25] MEDS ORDERED: ATROPINE SULF 1 MG/10ml SYR IV PRN (19:30)
[2023-09-25 19:55] VITALS: PULSE 62; RESP 20; O2SAT 100
[2023-09-25 20:39] LABS: INR 1.14 (0.9-1.15); Prothrombin Time 11.9 sec (9.3-11.8)
[2023-09-25 20:43] LABS: Magnesium 1.9 mg/dL (1.6-2.6)
[2023-09-25 20:44] LABS: Phosphorus 3.8 mg/dL (2.4-5.1)
[2023-09-25] MEDS: levETIRAcetam 500 MG TAB PO SCH (22:55)
[2023-09-25] MEDS: ASPirin 81 mg TAB PO ONE (22:55)
[2023-09-25] MEDS: HYDROcodone-ACET 5/325MG TAB PO PRN (22:55)
[2023-09-25] MEDS: CARBIDOPA W LEVODOPA 25/100mg TABLET PO SCH (22:56)
[2023-09-25] MEDS: CIPROFLOXACIN 400MG/200ML 200 ML IV SCH (23:53)
[2023-09-26] VITALS (9 sets, daily range): BP systolic 115–150; BP diastolic 53–81; PULSE 50–88; RESP 16–18; TEMP 97.3–98.3; O2SAT 90–98
[2023-09-26] MEDS: ENOXAPARIN SOD 40 MG/0.4 ML SYRINGE SC SCH (09:35)
[2023-09-26] MEDS: ATORVASTATIN 20 MG TAB PO SCH (09:35)
[2023-09-26] MEDS: LOSARTAN POTASSIUM 25 MG TAB PO SCH (09:35)
[2023-09-26] MEDS: ALLOPURINOL 100 MG TAB PO SCH (09:35)
[2023-09-26] MEDS: ASPirin 81 mg TAB PO SCH (09:35)
[2023-09-26] MEDS: amLODIPine BESYLATE 5 MG TAB PO SCH (09:36)
[2023-09-26] MEDS: MULTIPLE VITAMIN TAB PO SCH (09:43)
[2023-09-26] MEDS: AMPICILLIN & SULBACTAM 3 GM in NS 0.9% 100 ML IV SCH (15:31)
[2023-09-26] MEDS ORDERED: RIV15T PO (16:49)
[2023-09-26] MEDS: TAMSULOSIN HYDROCHLORIDE 0.4 MG CAP PO SCH (17:32)
[2023-09-26] MEDS ORDERED: LORazepam 2MG/ML-1ML VIAL IV PRN (22:30)
[2023-09-27 05:36] VITALS: BP 153/83; PULSE 59; RESP 17; TEMP 98.5; O2SAT 95
[2023-09-27] MEDS: PRAMIPEXOLE DIHYDROCHLORIDE MO 0.25 MG TAB PO SCH (06:00)
[2023-09-27] MEDS: CARBIDOPA W LEVODOPA 25/100mg TABLET PO SCH (06:26)
[2023-09-27 07:06] LABS: Basophils # (auto) 0 10 ^3/uL (0-0.2); Basophils % (auto) 0.1 % (0.0-2.0); Eosinophils # (auto) 0.1 10 ^3/uL (0-0.8); Eosinophils % (auto) 2.9 % (0.0-7.0); Hematocrit 39.6 % (41.0-53.0); Hemoglobin 13.1 g/dL (13.5-17.5); Lymphocytes # (auto) 1.2 10 ^3/uL (0.4-5.4); Lymphocytes % (auto) 30.2 % (10.0-50.0); Mean Corpuscular Hemoglobin 29.3 pg (28.0-32.0); Mean Corpuscular Hgb Conc. 33.2 g/dL (32.0-36.0); Mean Corpuscular Volume 88.3 fL (80.0-100.0); Monocytes # (auto) 0.3 10 ^3/uL (0-1.3); Monocytes % (auto) 7.3 % (0.0-12.0); Neutrophils # (auto) 2.4 10 ^3/uL (1.6-8.6); Neutrophils % (auto) 59.5 % (37.0-80.0); Nucleated Red Blood Cells % 0.1 %; Red Blood Cells 4.49 10^6/uL (4.5-5.90); Red Cell Distribution Width 13.9 % (11.8-14.3)
[2023-09-27 07:29] LABS: Alkaline Phosphatase 64 U/L (46-116); Anion Gap 6 (5-15); Aspartate Aminotransferase 35 U/L (13-40); BUN/Creatinine Ratio 18.2 (10.0-20.0); Blood Urea Nitrogen 16 mg/dL (9-23); Calcium 8.3 mg/dL (8.7-10.4); Carbon Dioxide 28 mmol/L (20-30); Chloride 111 mmol/L (98-107); Glucose 81 mg/dL (74-106); Potassium 3.3 mmol/L (3.5-5.1); Sodium 145 mmol/L (136-145)
[2023-09-27 07:30] LABS: Albumin 3.2 g/dL (3.2-4.8); Bilirubin, Total 0.7 mg/dL (0.2-1.0); Total Protein 5.3 g/dL (5.7-8.2)
[2023-09-27 07:39] LABS: Alanine Aminotransferase < 9 U/L (7-40)
[2023-09-27 08:00] VITALS: PULSE 59
[2023-09-27 09:00] VITALS: BP 127/69; PULSE 57; RESP 18; TEMP 98.1; O2SAT 92
[2023-09-27] MEDS: POTASSIUM CHL 20MEQ/100ML 100 ML IV SCH (10:00)
[2023-09-27] MEDS ORDERED: PRAM0.752 PO (10:07)
[2023-09-27] MEDS ORDERED: FURO40TA4 PO (10:10)
[2023-09-27] MEDS ORDERED: CEPH500C PO (10:35)
[2023-09-27] MEDS: POTASSIUM CHL 20 Meq TABLET PO ONE (12:09)
[2023-09-27 13:40] VITALS: BP 133/67; PULSE 59; RESP 18; TEMP 98; O2SAT 93
[2023-09-27] MEDS: SOTALOL HCL 80 MG TAB PO ONE (16:25)
[2023-09-27 17:04] VITALS: BP 112/69; PULSE 60; RESP 18; TEMP 98.2; O2SAT 97
[2023-09-27 17:07] VITALS: BP 112/69; PULSE 60; TEMP 36.8
== END 2023-09-27 18:30 | disposition home or self-care (01) | DRG 308 ==
LOC: ER 13:47 → EDBD 13:47 → TELE 19:39 → TELE-CENTR 09-26 03:20
PROVIDERS: ADMIT Nurse Practitioner Family; ATTEND Internal Medicine Geriatric Medicine
DX: I49.5 Sick sinus syndrome (principal); G93.41 Metabolic encephalopathy; I13.0 Hypertensive heart and chronic kidney disease with heart failure and stage 1 through stage 4 chronic kidney disease, or unspecified chronic kidney disease; N39.0 Urinary tract infection, site not specified; N18.31 Chronic kidney disease, stage 3a; E87.6 Hypokalemia; E78.5 Hyperlipidemia, unspecified; M1A.9XX0 Chronic gout, unspecified, without tophus (tophi); M41.9 Scoliosis, unspecified; I48.0 Paroxysmal atrial fibrillation; G20.A1 Parkinson's disease without dyskinesia, without mention of fluctuations; G40.909 Epilepsy, unspecified, not intractable, without status epilepticus; I50.9 Heart failure, unspecified; E11.22 Type 2 diabetes mellitus with diabetic chronic kidney disease; Z79.899 Other long term (current) drug therapy; Z79.2 Long term (current) use of antibiotics; Z79.891 Long term (current) use of opiate analgesic; Z82.49 Family history of ischemic heart disease and other diseases of the circulatory system; Z83.3 Family history of diabetes mellitus; Z91.148 Patient's other noncompliance with medication regimen for other reason
CPT/HCPCS: 36415; 70450; 71045; 80053; 80307; 80320; 81001; 83605; 83735; 84100; 84484; 85025; 85610; 87040; 87086; 87493; 93005; 97110; 97163; 97530; 99291; G0378